=== PATIENT | female | born 1995 | race Caucasian/White ===

== ENCOUNTER 2018-09-08 11:46 | Emergency (ER) | payer OTHER ==
[2018-09-08 11:54] VITALS: BP 135/66
--- NOTE | 2018-09-08 12:42 | ER Document Report ---
ED General - General Chief Complaint: Abdominal Pain Stated Complaint: ABDOMINAL PAIN Time Seen by Provider: 09/08/18 12:27 Notes: 23F here w c/o epigastric pain rad up to the chest and neck over the past 7 days. She has been seen at the [facility] ER 3 times for the same. States they performed testing to look at her heart, blood clots, gallbladder ultrasound, chest xray. She has been prescribed carafate (but has not yet gotten it filled), prilosec, motrin/tylenol but states that it has not helped. Her pain is much worse w eating. She does have a h/o GERD. No SOB. - Related Data Allergies/Adverse Reactions: cat dander Allergy (Intermediate, Verified 09/08/18 12:38) Hives dog dander Allergy (Intermediate, Verified 09/08/18 12:38) Hives milk Allergy (Intermediate, Verified 09/08/18 12:38) Hives Past Medical History - Social History Smoking Status: Unknown if Ever Smoked Family History: Reviewed & Not Pertinent Review of Systems - Review of Systems Notes: See history of present illness for pertinent positive review of systems; ot herwise all review of systems have been reviewed and are negative Physical Exam - Vital signs Vitals: Temp Pulse Resp BP Pulse Ox 99.0 F 91 18 135/66 H 98 09/08/18 11:52 09/08/18 11:52 09/08/18 11:52 09/08/18 11:52 09/08/18 11:52 - Notes Notes: PHYSICAL EXAMINATION: GENERAL: Well-appearing and in no acute distress. HEAD: Atraumatic, normocephalic. EYES: Pupils equal round and reactive to light, extraocular movements intact, sclera anicteric, conjunctiva are normal. ENT: nares patent, oropharynx clear without exudates. Moist mucous membranes. NECK: Normal range of motion, supple without lymphadenopathy LUNGS: CTAB and equal. No wheezes rales or rhonchi. HEART: Regular rate and rhythm without murmurs ABDOMEN: Soft, no tenderness. No facial grimacing/wincing upon palpation. No guarding, no rebound. EXTREMITIES: Normal range of motion, no pitting edema. No cyanosis. NEUROLOGICAL: Cranial nerves grossly intact. Normal sensory/motor exams. PSYCH: Normal mood, normal affect. SKIN: Warm, Dry, normal turgor, no rashes or lesions noted Course - Re-evaluation Re-evalutation: 09/08/18 12:42 MEDICAL DECISION MAKING: Concern for GERD esophagitis less likely ACS PE She has already had an extensive workup at [facility] Do not feel we need to repeat it here again She already has all the medications (prescribed from [facility]) I would have prescribed her D/w her to f/u PCP next day or malina - Francine Whitney Patient understands and agrees to the plan of care - Vital Signs Vital signs: Temp Pulse Resp BP Pulse Ox 99.0 F 91 18 135/66 H 98 09/08/18 11:52 09/08/18 11:52 09/08/18 11:52 09/08/18 11:52 09/08/18 11:52 Discharge - Discharge Clinical Impression: Epigastric pain Condition: Good Disposition: HOME, SELF-CARE Additional Instructions: senior support analyst a bottle of extra-strength Maalox and take pepcid 20 mg in the morning and again at night. You were seen in the emergency department at [facility]. If you were given any sedating medications, be sure not to operate heavy machinery (example - driving) and be sure you are not too sedated to walk appropriately. Please followup with your primary physician in the next few days for further management/evaluation. Please return to the emergency department for worsening of symptoms or any symptom that you deem to be concerning or life- threatening. Thank you for allowing us to be part of your care.
== END 2018-09-08 12:40 | disposition home or self-care (01) ==
LOC: ER 11:46
DX: R10.13 Epigastric pain (principal)
CPT/HCPCS: 99284